=== PATIENT | male | born 1970 | race Caucasian/White ===

== ENCOUNTER 2016-12-14 17:34 | Emergency (ER) | payer MEDICAID ==
[2016-12-14 19:53] LABS: % IMMATURE GRANULYOCYTES 0.2 % (0.0-1.1); ABSOLUTE IMMATURE GRANULOCYTES 0.01 10^3/uL (0.00-0.10); ADD DIFF? NO; ADD MORPH? NO; ADD SCAN? NO; ATYPICAL LYMPHOCYTE FLAG 20 (0-99); FRAGMENT RBC FLAG 0 (0-99); HEMATOCRIT 35.8 % (40.0-51.0); HEMOGLOBIN 12.5 g/dL (13.7-17.5); LEFT SHIFT FLG 0 (0-99); LIPEMIA HEMOLYSIS FLAG 90 (0-99); MEAN CELL HEMOGLOBIN 30.3 pg (27.9-34.1); MEAN CELL HEMOGLOBIN CONCENTR. 34.9 g/dL (32.4-36.7); MEAN CELL VOLUME 86.7 fL (81.5-99.8); MEAN PLATELET VOLUME 8.6 fL (8.7-11.7); PLATELET CLUMPS FLAG 20 (0-99); PLATELET COUNT 305 10^3/uL (150-400); RED BLOOD CELL COUNT 4.13 10^6/uL (4.40-6.38); RED CELL DISTRIBUTION WIDTH 12.7 % (11.5-15.2)
[2016-12-14 20:09] LABS: ANION GAP 10 mEq/L (8-16); CALCIUM 9.5 mg/dL (8.5-10.4); CARBON DIOXIDE 28 mEq/l (22-31); CHLORIDE 99 mEq/L (97-110); CREATININE 0.7 mg/dL (0.7-1.3); ETHANOL SERUM < 10 mg/dL (0-10); GLOMERULAR FILTRATION RATE > 60; GLUCOSE 115 mg/dL (70-100); POTASSIUM 4.1 mEq/L (3.5-5.2); SALICYLATE < 1.0 mg/dL (2.0-20.0); SODIUM 137 mEq/L (134-144)
--- NOTE | 2016-12-14 20:11 | EDPHY ---
H & P Stated Complaint: M1 Hold. Source: Patient - Personal History Current Tetanus Diphtheria and Acellular Pertussis (TDAP): Unsure - Medical/Surgical History Hx Asthma: No Hx Chronic Respiratory Disease: No Hx Diabetes: No Hx Cardiac Disease: No Hx Renal Disease: No Hx Cirrhosis: No Hx Alcoholism: Yes Hx HIV/AIDS: No Hx Splenectomy or Spleen Trauma: No Other PMH: heroin use, alcohol - Social History Smoking Status: Never smoked HPI/ROS: CHIEF COMPLAINT: M1 hold HISTORY OF PRESENT ILLNESS: Patient arrives on a M1 mental health hold due to grave disability, lack of self -care, hallucination and reportedly altered mentation. Patient denies in the hallucinations. He said he was joking when he said he was the president but this was mistaken as someone thinking he was calling himself the president. He denies feeling suicidal or homicidal. He does feel that he has potentially not been taking care of himself very well. He does not recall any medical diagnoses. He cannot providing further history and is a poor historian. No other associated complaints or modifying factors obtainable. PSYCHIATRIC DIAGNOSES: Unknown PRIOR PSYCHIATRIC EVALUATIONS: Unknown M1/DETAINER: By police department today at 4:56 p.m. REVIEW OF SYSTEMS: Ten systems reviewed and are negative unless otherwise noted in the HPI EXAMINATION General Appearance: Alert, no distress, unkempt, cachectic Head: normocephalic, atraumatic Eyes: Pupils equal and round, no conjunctival pallor. EOMs intact mild injection. ENT, Mouth: Mucous membranes moist. Poor dentition. Multiple dental caries, fractures and caps Neck: Normal inspection, supple, non-tender Respiratory: No retractions or distress. Lungs clear in all [place] Cardiovascular: Regular rate and rhythm. No murmur. Pulses intact distally. Gastrointestinal: Abdomen is soft and nontender Back: non-tender, no bony abnormalities Neurological: A&O, nonfocal, normal gait Skin: Warm and dry, no rash Extremities: Nontender, no pedal edema Psychiatric: Mood and affect normal DIFFERENTIAL DIAGNOSES: Including but not limited to failure to thrive, schizophrenia, schizoaffective, bipolar disorder, depression, substance abuse MDM: 8:10 p.m. Mental health hold due to grave disability, lactic care, hallucinations. The patient was reportedly hallucinating and altered earlier today. He is not altered at this time. He does have flight of ideas and difficulty focusing. He denies suicidal ideation or homicidal ideation. He is drinking water to provide a urine sample. Laboratory studies are pending 11:00 p.m. Still waiting for the patient to provide a urine sample 11:30 p.m. Notified by RN that the patient has become more agitated. She is requesting Zyprexa. I have agreed to order Zyprexa for the patient. 12:30 a.m. Notified by RN that the patient is positive for methamphetamine in his urine drug screen. This will require a 12 hour. Before he will be evaluated based on the criteria of the mental health professionals. SUPERVISION: Patient was evaluated in conjunction with the supervising physician. Please see their note for details. (Meet Berkowitz) 0641AM: This patient is signed over to Dr. Tavarez at 7:00 a.m. shift change. Patient needs mental health evaluation this morning. He may be able to be discharged if he has cleared his methamphetamine. (Raffi Ferreira) Constitutional: Initial Vital Signs Temperature (C) 36.4 C 12/14/16 17:51 Heart Rate 84 12/14/16 17:51 Respiratory Rate 16 12/14/16 17:51 Blood Pressure 141/105 H 12/14/16 17:51 O2 Sat (%) 98 12/14/16 17:51 O2 Delivery Mode Room Air Allergies/Adverse Reactions: DAIRY Allergy (Uncoded 07/06/14 00:14) Home Medications: Medication Instructions Recorded NK [No Known Home Meds] 07/06/14 Medical Decision Making ED Course/Re-evaluation: This patient was signed over to me at shift change. He was seen by mental health. The plan is for him to go to the [facility] for treatment of his substance abuse. He denies suicidal or homicidal ideation. (Aimee Melchor) Other Provider: I assumed care of the patient at 0700 AM pending psychiatric disposition. I evaluated the patient personally. He is sleeping in bed in arousable. The patient is not agitated however is still somewhat confused. The patient tells me he is homeless. He believes he has lived in [place] since 1998. He denies that he is used any drugs or alcohol. The patient states that he has no prior history of psychiatric disease. At this point time, the patient will require further observation and a mental health evaluation. (Tristan Tavarez) - Data Points Laboratory Results: Laboratory Results 12/14/16 19:40 12/14/16 19:40 Medications Given: Discontinued Medications Olanzapine (Zyprexa Zydis) 10 mg PO EDNOW ONE Stop: 12/14/16 23:40 Last Admin: 12/14/16 23:57 Dose: 10 mg Departure - Departure Clinical Impression: Methamphetamine abuse Condition: Fair Instructions: Methamphetamine Abuse (ED) Additional Instructions: Go directly to the arc. Follow-up with mental health as suggested. Referrals: Neris Wolfe MD [Medical Doctor] - As per Instructions
[2016-12-14 20:23] LABS: LITHIUM < 0.2 mEq/L (0.6-1.2)
[2016-12-14] MEDS ORDERED: OLANZapine DISINTEGR 10 MG TAB PO ONE (23:39)
[2016-12-15 16:41] VITALS: BP 110/74; PULSE 91; RESP 18; TEMP 97.7; O2SAT 97
== END 2016-12-15 16:55 | disposition home or self-care (01) ==
LOC: EDUNIT#
DX: F15.10 Other stimulant abuse, uncomplicated (principal)
CPT/HCPCS: 80305; G0480

== ENCOUNTER 2017-10-16 10:09 | Emergency (ER) | payer SELFPAY ==
[2017-10-16] MEDS ORDERED: OLANZapine 10 MG/2 ML VIAL IM ONE (10:37)
--- NOTE | 2017-10-16 10:57 | EDPHY ---
H & P Stated Complaint: Hallucinations, M1 psychiatric hold, running in traffic Source: Patient Exam Limitations: No limitations - Personal History Current Tetanus/Diphtheria Vaccine: Unsure Current Tetanus Diphtheria and Acellular Pertussis (TDAP): Unsure - Medical/Surgical History Hx Asthma: No Hx Chronic Respiratory Disease: No Hx Diabetes: No Hx Cardiac Disease: No Hx Renal Disease: No Hx Cirrhosis: No Hx Alcoholism: Yes Hx HIV/AIDS: No Hx Splenectomy or Spleen Trauma: No Other PMH: ETOH, polysubstance abuse (meth,heroin), THC, homeless - Social History Smoking Status: Never smoked Time Seen by Provider: 10/16/17 10:17 HPI/ROS: CHIEF COMPLAINT: Hallucinations, running in traffic HISTORY OF PRESENT ILLNESS: The patient is brought in M1 psychiatric hold after he was found running in traffic hallucinating. The patient himself is unable to provide any history as he is agitated and confused. In reviewing his past medical records he has been seen for altered mental status secondary to methamphetamine abuse. The patient denies any complaints of acute pain. He denies history of trauma. The patient is not forthcoming about his medications or substance abuse history. REVIEW OF SYSTEMS: A comprehensive 10 point review of systems is otherwise negative aside from elements mentioned in the history of present illness. (Tristan Tavarez) - Physical Exam Exam: General Appearance: Disheveled male, confused, appears intoxicated Eyes: Pupils equal and round no pallor or injection ENT, Mouth: Mucous membranes moist Respiratory: There are no retractions, lungs are clear to auscultation Cardiovascular: Regular rate and rhythm Gastrointestinal: Abdomen is soft and nontender, no masses, bowel sounds normal Neurological: Moves all 4 extremities with 5/5 strength Skin: Warm and dry, no rashes Musculoskeletal: Neck is supple nontender Extremities: symmetrical, full range of motion Psychiatric: Agitated, not stating suicidal or homicidal intent (Tristan Tavarez) Constitutional: Initial Vital Signs Heart Rate 79 10/16/17 10:09 Respiratory Rate 20 10/16/17 10:09 Blood Pressure 115/83 H 10/16/17 10:09 O2 Sat (%) 95 10/16/17 10:09 O2 Delivery Mode Room Air Allergies/Adverse Reactions: DAIRY Allergy (Uncoded 07/06/14 00:14) Home Medications: Medication Instructions Recorded NK [No Known Home Meds] 07/06/14 Medical Decision Making ED Course/Re-evaluation: 1500: The patient is signed out to me at change of shift by Dr. Tavarez. Patient is awaiting evaluation. Patient is stable. Patient was stable throughout stay. Patient was signed out to Dr. Ferreira at change of shift. (Tanya Armstrong) The patient presents the ED with acute agitation altered mental status. The patient did require IM Zyprexa. The patient did have screening laboratories obtained. The patient was able to be sedated with Zyprexa. 3:00 p.m.: The patient is still pending urinalysis. I have ordered a straight cath the patient refuses to urinate. Patient will be turned over to Dr. Armstrong at shift change. The patient was evaluated by Mental Health and his hold has been dropped. The patient now contracts for safety and is comfortable following up as an outpatient. (Tristan Tavarez) Differential Diagnosis: Differential diagnosis considered includes psychosis, schizophrenia, substance abuse, amphetamine intoxication (Tristan Tavarez) - Data Points Laboratory Results: Laboratory Results 10/16/17 11:48 10/16/17 11:48 Medications Given: Discontinued Medications Olanzapine (Zyprexa Im Injection) 10 mg IM EDNOW ONE Stop: 10/16/17 10:38 Last Admin: 10/16/17 10:44 Dose: 10 mg Departure - Departure Disposition: Home, Routine, Self-Care Clinical Impression: Polysubstance abuse, Methamphetamine abuse Condition: Good Referrals: NONE *PRIMARY CARE P,. [Primary Care Provider] - As per Instructions
[2017-10-16 11:55] LABS: PLATELET COUNT 361 10^3/uL (150-400)
[2017-10-16 23:06] VITALS: BP 94/57
--- NOTE | 2017-10-18 12:53 | ASMTTCLDSP ---
TLC Discharge Disposition Disposition: Answers: Discharge If Answers: Yes DISCHARGED: Patient/family given suicide hotline info & SAMHSA brochure? Disposition Notes: Notes: In consultation with [facility] ED physician, Raffi Camacho MD, and psychiatrist, Daniel Morillo MD, both concurred that pt does not appear to meet 27-65 criteria requiring psychiatric hospitalization as pt does not appear to be an imminent risk of harm to self and others due to a mental illness condition. Dr. Morillo provided telephone order read back vacating m1 hold at 07:00 hrs. Discharge Concerns/Recommendations: Notes: The pt stated commitment or ability to keep self safe, denied thoughts of self harm or harm to others. The pt was given local hotline information and samhsa brochure after an attempt, as well as additional mental health and addiction recovery resources. The pt was encouraged to follow up with said resources. Was patient given the Answers: Not applicable Inpatient Behavioral Health Prohibited Belongings List while in the ED? Psychiatrist vacating M1 Daniel Morillo MD Hold: Date and time M1 hold 10/17/2017 07:00 AM vacated (time format is hh:mm): Type of Hold: Answers: M1/72-hour Hold Hold initiated by: Answers: Police Date Signed: 10/17/2017 10:23 AM Electronically Signed By:Gaby Henley
--- NOTE | 2017-10-18 12:53 | ASMTTLCEVL ---
TLC Evaluation - Basic Information Evaluation Start Date and 10/17/2017 06:00 AM Time Hospital Status Answers: M1 Hold 72-hr M1 Hold Start Date 10/16/2017 09:14 AM and Time Patient statement Notes: "It was in the morning. I was arrested at [employer]. I wasnt arrested but needed water and everywhere I went, people were following me. People told me to leave; then I went to [facility] and the police came and told me to leave. This whole thing stems from me being in pain." Narrative Notes: The pt is a 46 year old single, male who was brought to the [facility] ed on a m1 hold. Per m1 hold, a retail security had reported a subject was blocking cars in the parking lot and scaring customers who he approached acting in a manic state. When police arrived they asked him to leave, subject rand across [address] without regard to traffic and his safety. When contacted by police he had expressed thoughts of thinking the police commanding officer was from the mob to kill him. He also thought someone was following him. The pt was placed on a m1 hold and brought to the [facility] ed due to hallucinations and concerns for his safety. During the re-assessment, the pt was rolled over on his side, turned away from this timers inspector. He did not make eye contact and he was mumbling his responses. He reported feeling like he had "caught a cold in the middle of the night." The pt requested a cup of coffee multiple times. He stated, "i don't remember" when asked about the events leading up to him coming to the er. The pt denied SI, HI, A/VH, and anxiety; rating himself a 0/10. He stated that he felt depressed and refused to rate himself on a scale from 0-10. When initially asked about A/VH the pt replied, "well, I have my eyes closed." The pt later stated, " i don't mean to be rude but the questions there are a lot of them." Diagnosis History Notes: The pt stated, "as much as I need help, they wont help me. Prior suicide attempts Notes: The pt denied any prior suicide attempts. Prior hospitalizations Notes: The pt was seen in the [facility] ed on 12/14-12/15/2016. There is no report of a mh evaluation due to d/c and medically cleared with positive meth. Per ed report, the pt has a hx of alcohol, polysubstance abuse, (meth and heroin) and THC. Treatment Responses Notes: none reported History of violence Notes: The pt denied any homicidal ideation or previous hx of violence. Therapist: none reported Psychiatrist: none reported Medications (name, dosage, route, freq uency) Notes: none reported; the pt stated he is not taking medications but stated, I would love to take medications for pain. Allergies/Reaction Notes: none reported Sleep Notes: The pt answered, obviously, I dont eat or sleep at all and thats just the way it is but thats not healthy. Appetite Notes: none reported Medical/Surgical history Notes: The pt stated, I pretty much look like Im dying of aids but Im in top shape. The pt stated he does have chronic teeth problems. Substance use history (frequency, intensity, his tory, duration) Notes: The pt stated he does methamphetamine and has been doing it since he was a teenager. The pt stated I do a little bit. pt stated I resort to little bits of drugs here and there for my tooth. Family composition Notes: The pt stated his parents are . The pt stated, I have no family at all." Family psychiatric/substance abuse history Notes: The pt denied any family psychiatric hx. pt denied any family substance abuse hx. Developmental history Notes: The pt did not report any developmental issues or learning disabilities. The pt denied ADD or ADHD. The pt denied any TBIs concussions or LOC. The pt did not report any physical abuse, emotional abuse, or sexual abuse. Abuse concerns Answers: None Marital status/children Notes: unknown Living situation Notes: The patient is transient and living in [place], [place]. Sexual history/orientation Notes: The pt did not report their sexual hx, orientation, nor whether they are currently sexually active. Peer support/family strengths Notes: The pt stated, "I have friends." Education level/history Notes: The pt reported completing the 10th grade. Work history Notes: none reported Notes: unknown Legal Notes: The pt was brought to [facility] Emergency Department by law enforcement and placed on a M1 hold. He reports having multiple contacts with police. Holiness/Spiritual Notes: The pt reported none that would interfere with treatment. Leisure Notes: none reported Collateral Notes: none TLC Evaluation - Mental Status Exam Appearance: Answers: Unclean Unkempt Disheveled Eye Contact: Answers: Avoiding Mood: Answers: Euthymic Affect: Answers: Apathetic Congruent w/ Mood Guarded Indifferent Behavior: Answers: Cooperative Fatigued Guarded Passive Withdrawn Speech: Answers: Relevant Logical Clear Coherent Mumbling Perseverating Slowed Soft Thought Process: Answers: Organized Oriented Distracted Intact Insight: Answers: Fair Judgement: Answers: Poor Depression Answers: Diminished Interest Signs/Symptoms: Diminished Pleasure Withdrawn Hallucinations: Answers: None Current Stage of Change Answers: Contemplation Pt reported to have Answers: No suicidal/self-injuring ideation/behavior? Pt reported to be making Answers: No suicidal/self-injuring threats? Pt reported to be making Answers: No aggression/assault threats? Pt exhibits inability to Answers: No care for self/grave disability? Ideation/behavior is Answers: No chronic? Pt has access to means to Answers: No execute the plan? Ideation has Answers: No delusional/hallucinatory content? History of Answers: No suicidal/self-injuring ideation, behavior, or threats? History of Answers: No aggressive/assaultive ideation, behavior, or threats? History of serious Answers: No physical harm to self/others while in treatment setting? [facility] Evaluation - Suicide/Homicide Risk Suicide Risk Factors: Answers: < 20 or > 40 Years of Age Anhedonia Inadequate Social Support Lack/Loss of Employment Legal Difficulties Single Other Notes: drug abuse Homicide/violence risk Answers: Heavy Drug Use factors: Paranoid Ideation Current Suicidal Answers: No Ideation? Current Suicidal Ideation Answers: No in the Past 48 Hours? Current Suicidal Ideation Answers: No in the Past Month? Current Suicidal Answers: No Ideation, Worst Ever? Suicide Internal Answers: Frustration Tolerance Protective Factors: Suicide External Answers: Social Support Protective Factors: TLC Evaluation - Wrap-up BDI Total Score: n/a BDI Question #2 Score: n/a BDI Question #9 Score: n/a BSS Total Score: n/a AXIS I Diagnosis (include DSM-V and ICD-10 codes), must also be entered in [facility], which is the source of truth. 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
--- NOTE | 2017-10-18 14:59 | ASDISCHSUM ---
[facility] Case Management CM Discharge Summary Patient Name: GIUSEPPE ROA Rpt#: [id number] MR#: [id number] Attending: Raffi Ferreira MD Adm Date: 10/16/17 Discharge Information Plan Status: Homeless/Long-Term Medically Cleared to Leave: Discharge Date: 10/17/2017 07:43 AM CM D/C Disposition: Streets (Homeless) ADT D/C Disposition: Home, Routine, Self-Care Projected Discharge Date: 10/17/2017 07: 43 AM Transportation at D/C: None or Unknown Discharge Delay Reason: Follow-Up Date: 10/17/2017 07:43 AM Discharge Slot: Final Diagnosis: Placement Information Patient Contact Information Contact Name: RAJWINDER Relationship: Address: Home Phone: Work Phone: City: Alternate Phone: State/Zip Code: Email: Financial Information Financial Class: Self-Pay Primary Plan Desc: SELF PAY Primary Plan Number: Secondary Plan Desc: Secondary Plan Number: Assessment Information Intervention Information
== END 2017-10-17 07:23 | disposition home or self-care (01) ==
LOC: EDUNIT#
DX: F15.10 Other stimulant abuse, uncomplicated (principal); F19.10 Other psychoactive substance abuse, uncomplicated
CPT/HCPCS: 80305; G0480

== ENCOUNTER 2017-12-03 16:35 | Emergency (ER) | payer MEDICAID ==
[2017-12-03] MEDS ORDERED: OLANZapine DISINTEGR 10 MG TAB PO ONE (17:03)
--- NOTE | 2017-12-03 17:05 | EDPHY ---
H & P Smoking Status: Never smoked Time Seen by Provider: 12/03/17 16:57 HPI/ROS: Chief complaint. Agitation HPI. 47-year-old male here by [place] [employer] after report of the patient behaving bizarrely in public and trying to run into traffic. He was combative by [place] [employer] and had to be tackled. He was seen October 16 for similar situation of running in traffic and his tox screen was positive for methamphetamine. He received IM Zyprexa and had a mental health evaluation. Today the patient admits to methamphetamine as well as other substances. He has no physical complaints. He is agitated and tells me he is a "rapid thinker". He denies suicide or homicide ideation ROS Constitutional. no fever/chills, no weakness Eyes. no problems with vision ENT. no sore throat, no nasal drainage Cardiovascular. no chest pain Respiratory. no shortness of breath, no cough Abdominal. no abdominal pain, no nausea/vomiting, no diarrhea . no problems urinating MS. no calf pain/swelling, no neck/back pain, no joint pain Skin. no rash Lymph. no swollen glands Neuro. Agitation (Kenton Yang S) Past Medical/Surgical History: Polysubstance abuse (Kenton Yang S) Social History: Single, nonsmoker, no alcohol (Kenton Yang S) Physical Exam: General Appearance: Alert well-developed male agitated tachycardic. Eyes: Pupils equal and round no pallor or injection. ENT, Mouth: Mucous membranes are moist. Respiratory: There are no retractions, lungs are clear to auscultation. Cardiovascular: Regular rate and rhythm. Gastrointestinal: Abdomen is soft and nontender, no masses, bowel sounds normal. Neurological: Awake and alert, sensory and motor exams grossly normal. Skin: Warm and dry, no rashes. Musculoskeletal: Neck is supple nontender. Extremities symmetrical, full range of motion. Psychiatric: Oriented x3. Agitated (TreyKenton S) Constitutional: Initial Vital Signs Temperature (C) 37.0 C 12/03/17 16:49 Heart Rate 128 H 12/03/17 16:49 Respiratory Rate 26 H 12/03/17 16:49 Blood Pressure 158/89 H 12/03/17 16:49 O2 Sat (%) 97 12/03/17 16:49 O2 Delivery Mode Room Air Allergies/Adverse Reactions: DAIRY Allergy (Uncoded 07/06/14 00:14) Home Medications: Medication Instructions Recorded Unobtainable 12/03/17 Medical Decision Making Procedures: Zyprexa and Ativan (Kenton Yang) ED Course/Re-evaluation: Re-evaluation at 6:15 p.m. Patient is better but still agitated. He is given another oral dose of Ativan Re-evaluation 8:30 p.m. Patient is sleepy. He has not been able to give us a urine sample. He will have a straight cath a 4 year obtain a urine for urine tox screen Urine tox screen positive for meth and cocaine. This will delay his mental health evaluation (Kenton Yang) 9:45 p.m.: Patient is signed out to me at change of shift by Dr. Yang. The patient is awaiting evaluation by Psychiatric Services. 11:00 p.m.: The patient is signed out to Dr. Caldwell at change of shift awaiting evaluation (Tanya Armstrong) I took over care of this patient at 7:00 a.m.. This patient is on an M1 hold. The patient was brought in by police for acting bizarrely in public, running into traffic and being combative. He is positive for methamphetamine. He is awaiting evaluation by Behavioral Health. 9:15 a.m., patient seen and evaluated by [facility]. Patient is not suicidal or homicidal. Patient has been cleared for discharge by the on-call psychiatrist Dr. Scott. His M1 hold has been discontinued. Follow-up plan in place through [facility]. Return to emergency department precautions discussed with the patient. He understands his follow-up. He was discharged in good condition. (Jon Muniz) Differential Diagnosis: Polysubstance abuse. It is unclear currently where the patient is psychotic or not secondary to his med ingestions. (Kenton Yang) Other Provider: 2300 care assumed by me from Dr. Armstrong pending mental health evaluation. ( Fermin Caldwell) Care Turn Over: Dr. Armstrong at 9:15 p.m. (Kenton Yang) - Data Points Laboratory Results: Laboratory Results 12/03/17 18:46 12/03/17 18:46 Medications Given: Discontinued Medications Lorazepam (Ativan) 1 mg PO EDNOW ONE Stop: 12/03/17 17:34 Last Admin: 12/03/17 17:39 Dose: 1 mg Lorazepam (Ativan) 1 mg PO EDNOW ONE Stop: 12/03/17 18:18 Last Admin: 12/03/17 18:23 Dose: 1 mg Olanzapine (Zyprexa Zydis) 10 mg PO EDNOW ONE Stop: 12/03/17 17:04 Last Admin: 12/03/17 17:39 Dose: 10 mg Departure - Departure Disposition: Home, Routine, Self-Care Clinical Impression: Polysubstance abuse, Altered mental status Condition: Good Instructions: Polysubstance Abuse (ED) Additional Instructions: Read and follow provided instructions. Follow-up with your primary care physician and [facility] in 1-2 days for re-evaluation. Do not drink alcohol or do drugs. Return to the emergency department for worsening symptoms or other serious concerns. Referrals: [facility],. [Clinic] - As per Instructions [facility] - As per Instructions
[2017-12-03] MEDS ORDERED: LORazepam 1 MG TAB PO ONE ×2 (17:33→18:17)
[2017-12-03] MEDS ORDERED: OLANZapine DISINTEGR 10 MG TAB ONE (17:34)
[2017-12-03] MEDS ORDERED: LORazepam 1 MG TAB ONE (17:34)
[2017-12-03 18:51] LABS: PLATELET COUNT 336 10^3/uL (150-400)
[2017-12-04 08:43] VITALS: BP 128/76
--- NOTE | 2017-12-04 09:22 | ASMTTLCEVL ---
TLC Evaluation - Basic Information Evaluation Start Date and 12/04/2017 08:45 AM Time Hospital Status Answers: M1 Hold 72-hr M1 Hold Start Date 12/04/2017 08:45 AM and Time Patient statement Notes: "I dont recall being physically combative. I used a little bit of meth yesterday. It may have had a little cocaine in it. Im not feeling suicidal or wanting to hurt anyone else. Im feeling better now, just tired. Narrative Notes: Pt is a 47 year old single, transient, male, with history of amphetamine, opiate, and cannabis use disorders, who was brought to [facility] by [employer] on a m1 hold which noted: The respondent was shirtless, yelling nonsensical statements and sat down in the middle of [address]. He was speaking fast and became physically combative. Diagnosis History Notes: Pt has a long history of methamphetamine, marijuana and alcohol use disorder. Prior suicide attempts Notes: The pt denied any prior suicide attempts. Prior hospitalizations Notes: The pt was seen in the [facility] ED on 12/14-12/15/2016 and on 10/17/17. In both instances, pt was discharged from the ED. Treatment Responses Notes: Pt has a pattern of refusing mental health/substance abuse help and continues using illicit substances. History of violence Notes: The pt denied any homicidal ideation or previous hx of violence. Therapist: None Psychiatrist: None Medications (name, dosage, route, freq uency) Notes: None reported; the pt stated he is not taking medications but stated, I would love to take medications for pain. Allergies/Reaction Notes: Dairy. Sleep Notes: The pt answered, Obviously, I dont eat or sleep at all and thats just the way it is but thats not healthy. Appetite Notes: Decreased, appears thin. Medical/Surgical history Notes: The pt stated, I pretty much look like Im dying of AIDS but Im in top shape. The pt stated he does have chronic teeth problems. Substance use history (frequency, intensity, his tory, duration) Notes: The pt stated he does methamphetamine and has been doing it since he was a teenager. The pt stated I do a little bit. pt stated I resort to little bits of drugs here and there for my tooth. BAL was zero. UDS results positive for Amphetamine, Benzodiazepines, Cocaine, and Marijuana. Family composition Notes: The pt stated his parents are . The pt stated, I have no family at all." Need for family Answers: No participation in patient's care Family psychiatric/substance abuse history Notes: The pt denied any family psychiatric history. Pt denied any family substance abuse history. Developmental history Notes: The pt did not report any developmental issues or learning disabilities. The pt denied ADD or ADHD. The pt denied any TBIs concussions or LOC. The pt did not report any physical abuse, emotional abuse, or sexual abuse. Abuse concerns Answers: None Marital status/children Notes: Single, never , no dependents. Living situation Notes: Homeless. Sexual history/orientation Notes: Not active. Heterosexual. Peer support/family strengths Notes: The pt stated, "I have friends." Education level/history Notes: The pt reported completing the 10th grade. Work history Notes: Unemployed. Notes: None. Legal Notes: The pt was brought to [facility] by law enforcement and placed on a M1 hold. He reports having multiple contacts with police. Adventism/Spiritual Notes: The pt reported none that would interfere with treatment. Leisure Notes: None reported. Collateral Notes: Per prior [facility] records. TLC Evaluation - Mental Status Exam Appearance: Answers: Unclean Unkempt Disheveled Bizarre Eye Contact: Answers: Avoiding Mood: Answers: Euthymic Affect: Answers: Calm Indifferent Behavior: Answers: Cooperative Guarded Resistive to Care Speech: Answers: Relevant Logical Clear Coherent Thought Process: Answers: Organized Oriented Alert Goal Oriented Intact Insight: Answers: Poor Judgement: Answers: Fair Manic Signs/Symptoms Answers: Impulsivity Irritability Depression Answers: Flat Affect Signs/Symptoms: Hallucinations: Answers: None Current Stage of Change Answers: Precontemplation Pt reported to have Answers: No suicidal/self-injuring ideation/behavior? Pt reported to be making Answers: No suicidal/self-injuring threats? Pt reported to have Answers: No aggression/assault ideation/behavior? Pt reported to be making Answers: No aggression/assault threats? Pt exhibits inability to Answers: No care for self/grave disability? Ideation/behavior is Answers: No chronic? Patient has a specific Answers: No plan? Pt has access to means to Answers: No execute the plan? Ideation involves Answers: No serious/lethal intent? Ideation has Answers: No delusional/hallucinatory content? History of Answers: No suicidal/self-injuring ideation, behavior, or threats? History of Answers: No aggressive/assaultive ideation, behavior, or threats? History of serious Answers: No physical harm to self/others while in treatment setting? TLC Evaluation - Suicide/Homicide Risk Suicide Risk Factors: Answers: < 20 or > 40 Years of Age Alcohol/Heavy Drug Use Impulsivity Inadequate Social Support Intoxication Lack of Adventism Support Lack of Social Support Lack/Loss of Employment Single Unstable Living Situation Homicide/violence risk Answers: None factors: Current Suicidal Answers: No Ideation? Current Suicidal Ideation Answers: No in the Past 48 Hours? Current Suicidal Ideation Answers: No in the Past Month? Current Suicidal Answers: No Ideation, Worst Ever? Suicide Internal Answers: Absence of Psychosis Protective Factors: Suicide External Answers: None Protective Factors: Ranking of patient's Answers: Low suicidal risk: Ranking of patient's Answers: Low homicidal risk: TLC Evaluation - Wrap-up BDI Total Score: 0 BDI Question #2 Score: 0 BDI Question #9 Score: 0 BSS Total Score: 0 AXIS I Diagnosis (include DSM-V and ICD-10 codes), must also be entered in [employer], which is the source of truth. Notes: AMPHETAMINE-TYPE SUBSTANCE USE DISORDER, SEVERE 304.40 (F15.20) COCAINE USE DISORDER, MODERATE 305.60 (F14.20) SEDATIVE, HYPNOTIC, OR ANXIOLYTIC-RELATED DISORDER, MODERATE 304.10 (F13.20) CANNABIS USE DISORDER, SEVERE 304.30 (F12.20) In consultation with [facility] physician, Vinny Muniz MD, and on-call psychiatrist, Daniel Morillo MD, both concurred that pt does not appear to meet 27-65 criteria requiring psychiatric hospitalization as pt does not appear to be an imminent risk of harm to self/others/gravely disabled due to a mental illness condition. Dr. Morillo provided telephone order read back vacating M1 hold at 0900 hrs. Evaluation End Date and 12/04/2017 09:20 AM Time (HH:ADRIÁN): Date Signed: 12/04/2017 09:21 AM Electronically Signed By:Santos Abdalla
--- NOTE | 2017-12-04 09:23 | ASMTTCLDSP ---
TLC Discharge Disposition Disposition: Answers: Discharge If Answers: Yes DISCHARGED: Patient/family given suicide hotline info & SAMHSA brochure? Disposition Notes: Notes: Pt stated commitment or ability to keep self safe, denied thoughts of self harm or harm to others. Pt was given local hotline information and SAMHSA brochure After an Attempt and encouraged to follow up with [facility]. Discharge Concerns/Recommendations: Notes: In consultation with [facility] ED physician, Vinny Muniz MD, and on-call psychiatrist, Daniel Morillo MD, both concurred that pt does not appear to meet 27-65 criteria requiring psychiatric hospitalization as pt does not appear to be an imminent risk of harm to self/others/gravely disabled due to a mental illness condition. Dr. Morillo provided telephone order read back vacating M1 hold at 0900 hrs. Was patient given the Answers: Not applicable Inpatient Behavioral Health Prohibited Belongings List while in the ED? Psychiatrist vacating M1 Daniel Morillo MD Hold: Date and time M1 hold 12/04/2017 09:00 AM vacated (time format is hh:mm): Type of Hold: Answers: M1/72-hour Hold Hold initiated by: Answers: Police Date Signed: 12/04/2017 09:22 AM Electronically Signed By:Santos Abdalla
== END 2017-12-04 09:30 | disposition home or self-care (01) ==
DX: R41.82 Altered mental status, unspecified (principal); F19.10 Other psychoactive substance abuse, uncomplicated
CPT/HCPCS: 80305; G0480

== ENCOUNTER 2018-04-03 10:56 | Emergency (ER) | payer MEDICAID ==
--- NOTE | 2018-04-03 11:02 | EDPHY ---
Addendum entered and electronically signed by Tristan Tavarez MD 04/03/18 19: 51: Re-evaluated the patient personally at 8:00 p.m.. He is much more oriented. He is still experiencing some paranoid delusions. The patient does report that he is homeless. He is not been staying at the homeless alf. The patient is uncertain where his camp is at. He is uncertain what he would do if he were discharged from the department. We are attempting to obtain collateral information for [facility]. Addendum entered and electronically signed by Tristan Tavarez MD 04/03/18 14: 51: Please note the patient was not evaluated by Psychiatry and felt to be malingering. The patient continues to be sedated after a presentation c/w methamphetamine induced psychosis. Original Note: H & P Smoking Status: Never smoked Time Seen by Provider: 04/03/18 10:59 HPI/ROS: CHIEF COMPLAINT: Mental health hold HISTORY OF PRESENT ILLNESS: Police were called to the coffee shop the patient was apparently yelling and screaming about how "this is my coffee shop"and how he wanted to hurt himself. He is placed on a mental health hold for grave disability and suicidal ideation. REVIEW OF SYSTEMS: Patient is disorganized and only intermittently cooperative, which limits further history and review of systems. PAST MEDICAL HISTORY: Prior visits December 03 and October 16 of this year for psychosis due to methamphetamine. Social history: Admits to methamphetamine General Appearance: Alert and ambulatory, intermittently cooperative Eyes: No scleral icterus. Pupils equal reactive extraocular motion intact ENT, Mouth: Poor dentition but no trismus and no intraoral swelling. Normal pharynx. Respiratory: Normal respiratory effort, breath sounds equal, lungs are clear to auscultation. Cardiovascular: Regular rate and rhythm. Gastrointestinal: Abdomen is soft and non tender. Neurological: Alert, face symmetric, normal motor and sensory in extremities. Ambulatory but not ataxic. Skin: Scattered abrasions to both hands on the dorsum but no cellulitis. Musculoskeletal: No peripheral edema. Neck supple, no extremity deformity or tenderness, no meningeal signs. Psychiatric: Patient is intermittently agitated, he is pacing in the room, he has sometimes random answers to questions. He is distracted by external stimuli that are not apparent to anyone else in the room. Emergency Department course/MDM: Placed on a hold by police, on arrival for grave disability and also for having made suicidal statements to them. Labs and urine tox, serial observation, mental health evaluation when cleared. The toxicology positive for amphetamine. The patient had a medical screening evaluation performed. There does not appear to be an acute emergent medical or surgical condition which would preclude psychiatric evaluation at this time. Mental health evaluation is requested at 1329. (Almas Desouza) Constitutional: Initial Vital Signs Temperature (C) 37 C 04/03/18 11:54 Heart Rate 78 04/03/18 11:54 Respiratory Rate 18 04/03/18 11:54 Blood Pressure 135/78 H 04/03/18 11:54 O2 Sat (%) 98 04/03/18 11:54 O2 Delivery Mode Room Air Allergies/Adverse Reactions: DAIRY Allergy (Uncoded 07/06/14 00:14) Home Medications: Medication Instructions Recorded Unobtainable 12/03/17 Medical Decision Making Differential Diagnosis: Differential considered including but not limited to primary psychotic disorder , metabolic, methamphetamine, alcohol (Almas Desouza) Other Provider: I assumed care of the patient at 1:45pm The patient was evaluated by Mental Health who feels the patient is currently malingering. The patient's M1 psychiatric hold was dropped by the on-call psychiatrist. The patient has been discharged from the emergency department. (Tristan Tavarez) [address] Guidry pending case management evaluation. [address] Moreno pending case management evaluation. I have had no issues during my care this patient overnight. (Fermin Caldwell) 10:00 a.m. Case management and mental health were both involved with the patient and were able to successfully get him resources. He denies suicidal or homicidal ideation. (Dwayne Moreno) - Data Points Laboratory Results: Laboratory Results 04/03/18 11:45 04/03/18 11:45 Medications Given: Discontinued Medications Olanzapine (Olanzapine) 10 mg PO ONCE ONE Stop: 04/03/18 11:31 Last Admin: 04/03/18 12:17 Dose: 10 mg Departure - Departure Disposition: Home, Routine, Self-Care Clinical Impression: Acute psychosis, Methamphetamine abuse Condition: Good Instructions: Methamphetamine Abuse (ED) Referrals: [facility],. [Clinic] - As per Instructions [facility],. [Clinic] - As per Instructions
[2018-04-03] MEDS ORDERED: OLANZapine 5 MG TAB ONE (11:30)
[2018-04-03] MEDS ORDERED: OLANZapine 5 MG TAB PO ONE (11:30)
[2018-04-03 12:01] LABS: PLATELET COUNT 520 10^3/uL (150-400)
[2018-04-04] MEDS ORDERED: IBUPROFEN 600 MG TAB PO ONE (08:22)
[2018-04-04 08:26] VITALS: BP 140/78
--- NOTE | 2018-04-04 08:45 | ASMTTLCEVL ---
TLC Evaluation - Basic Information Evaluation Start Date and 04/04/2018 08:00 AM Time Hospital Status Answers: M1 Hold 72-hr M1 Hold Start Date 04/03/2018 10:30 AM and Time Patient statement Notes: I used a bit of meth yesterday. Im not feeling suicidal or wanting to hurt anyone else. Im feeling better now, other than feeling some cold symptoms. Narrative Notes: Pt is a 47 yo, single, transient and homeless, male, with history of amphetamine, opiate, and cannabis use disorders, who was brought to [facility] ED by [employer] on an M1 hold which noted: Respondent appearance and dirty condition indicate he is not caring for self. Respondent made numerous statement about needing help (including medical). Was speaking to people that did not exist and about being persecuted by same. Respondent made numerous threates of violence towards others including responding officer (to shoot in back of head). Per ED provider report, police were called to a coffee shop where the pt was apparently yelling and screaming about how this is my coffee shop and how he wanted to hurt himself. [facility] records noted prior ED visits on 10/16/2017 and 12/04/17 for psychosis due to methamphetamine use. BAL was zero. UDS results were positive for amphetamine at 1200 on 12/01/17. Diagnosis History Notes: Pt has a long history of methamphetamine, marijuana and alcohol use disorder. Prior suicide attempts Notes: The pt denied any prior suicide attempts. Prior hospitalizations Notes: The pt was seen in the [facility] ED on 12/14-12/15/2016, 10/17/17, and on 12/04/17. In each instance, pt was discharged from the ED. Treatment Responses Notes: Pt has a pattern of refusing mental health/substance abuse help and continues using illicit substances. History of violence Notes: The pt denied any homicidal ideation or previous history of violence. Therapist: None. Psychiatrist: None. Medications (name, dosage, route, freq uency) Notes: None reported; the pt stated he is not taking medications but stated, I would love to take medications for pain. Allergies/Reaction Notes: Dairy. Sleep Notes: The pt answered, Obviously, I dont eat or sleep at all and thats just the way it is but thats not healthy. Appetite Notes: Decreased, appears thin. Medical/Surgical history Notes: The pt stated, I pretty much look like Im dying of AIDS but Im in top shape. The pt stated he does have chronic teeth problems. Substance use history (frequency, intensity, his tory, duration) Notes: The pt stated he does methamphetamine and has been doing it since he was a teenager. The pt stated I do a little bit. pt stated I resort to little bits of drugs here and there for my tooth. BAL was zero. BAL was zero. UDS results were positive for amphetamine at 1200 on 12/01/17. Family composition Notes: The pt stated his parents are . The pt stated, I have no family at all." Need for family Answers: No participation in patient's care Family psychiatric/substance abuse history Notes: The pt denied any family psychiatric history. Pt denied any family substance abuse history. Developmental history Notes: The pt did not report any developmental issues or learning disabilities. The pt denied ADD or ADHD. The pt denied any TBIs concussions or LOC. The pt did not report any physical abuse, emotional abuse, or sexual abuse. Abuse concerns Answers: None Marital status/children Notes: Single, never , no dependents. Living situation Notes: Homeless. Pt stated he has not been staying at the custodial and does not recall where his camp is located. Sexual history/orientation Notes: Not active. Heterosexual. Peer support/family strengths Notes: The pt stated, "I have friends." Education level/history Notes: The pt reported completing the 10th grade. Work history Notes: Unemployed. Notes: None. Legal Notes: The pt was brought to [facility] Emergency Department by law enforcement and placed on a M1 hold. He reports having multiple contacts with police. Presybeterian/Spiritual Notes: The pt reported none that would interfere with treatment. Leisure Notes: None reported. Collateral Notes: Prior [facility] records. Patient's strengths Answers: Artistic/Creative/Musical (Please select at least TWO strengths): Willingness TLC Evaluation - Mental Status Exam Appearance: Answers: Unclean Unkempt Disheveled Eye Contact: Answers: Avoiding Mood: Answers: Sad Affect: Answers: Calm Incongruent w/ Mood Indifferent Sad Subdued Behavior: Answers: Cooperative Fatigued Passive Resistive to Care Sleeping Speech: Answers: Relevant Logical Clear Coherent Thought Process: Answers: Organized Oriented Alert Goal Oriented Intact Insight: Answers: Poor Judgement: Answers: Fair Manic Signs/Symptoms Answers: Impulsivity Depression Answers: Diminished Pleasure Signs/Symptoms: Psychomotor Retardation Sad Mood Hallucinations: Answers: None Current Stage of Change Answers: Precontemplation Pt reported to have Answers: No suicidal/self-injuring ideation/behavior? Pt reported to be making Answers: No suicidal/self-injuring threats? Pt exhibits inability to Answers: No care for self/grave disability? Ideation/behavior is Answers: No chronic? Patient has a specific Answers: No plan? Pt has access to means to Answers: No execute the plan? Ideation involves Answers: No serious/lethal intent? Ideation has Answers: No delusional/hallucinatory content? History of Answers: No suicidal/self-injuring ideation, behavior, or threats? History of Answers: No aggressive/assaultive ideation, behavior, or threats? History of serious Answers: No physical harm to self/others while in treatment setting? TLC Evaluation - Suicide/Homicide Risk Suicide Risk Factors: Answers: < 20 or > 40 Years of Age Alcohol/Heavy Drug Use Anhedonia Impulsivity Inadequate Social Support Intoxication Lack of Presybeterian Support Lack of Social Support Lack/Loss of Employment Low Intelligence Single Unstable Living Situation Homicide/violence risk Answers: None factors: Current Suicidal Answers: No Ideation? Current Suicidal Ideation Answers: No in the Past 48 Hours? Suicide Internal Answers: Absence of Psychosis Protective Factors: Suicide External Answers: None Protective Factors: Ranking of patient's Answers: Low homicidal risk: TLC Evaluation - Wrap-up AXIS I Diagnosis (include DSM-V and ICD-10 codes), must also be entered in [employer], which is the source of truth. 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 Moreno concurred that pt does not appear to meet 27-65 criteria requiring psychiatric hospitalization as pt does not appear to be an imminent risk of harm to self/others/gravely disabled due to a mental illness condition. Dr. Moreno provided verbal order read back vacating hold at 0815 hrs. Evaluation End Date and 04/04/2018 08:45 AM Time (HH:MM): Date Signed: 04/04/2018 08:44 AM Electronically Signed By:Santos Abdalla
--- NOTE | 2018-04-04 08:47 | ASMTTCLDSP ---
TLC Discharge Disposition Disposition: Answers: Discharge If Answers: Yes DISCHARGED: Patient/family given suicide hotline info & SAMHSA brochure? Disposition Notes: Notes: Pt stated commitment or ability to keep self safe, denied thoughts of self harm or harm to others. Pt expressed a desire to f/u with homeless residential resources provided by grain operations manager. Pt was given local hotline information and SAMHSA brochure After an Attempt and encouraged to follow up with [facility]. Discharge Concerns/Recommendations: Notes: In consultation with [facility] ED physician, Dwayne Moreno MD, Dr. Moreno concurred that pt does not appear to meet 27-65 criteria requiring psychiatric hospitalization as pt does not appear to be an imminent risk of harm to self/others/gravely disabled due to a mental illness condition. Dr. Moreno provided verbal order read back vacating M1 hold at 0815 hrs. Was patient given the Answers: Not applicable Inpatient Behavioral Health Prohibited Belongings List while in the ED? Psychiatrist vacating M1 Dwayne Moreno MD Hold: Date and time M1 hold 04/04/2018 08:15 AM vacated (time format is hh:mm): Type of Hold: Answers: M1/72-hour Hold Hold initiated by: Answers: Police Date Signed: 04/04/2018 08:46 AM Electronically Signed By:Santos Abdalla
== END 2018-04-04 09:00 | disposition home or self-care (01) ==
DX: R45.851 Suicidal ideations (principal); F23 Brief psychotic disorder; F15.20 Other stimulant dependence, uncomplicated; Z59.0 Homelessness
CPT/HCPCS: 80305; G0480

== ENCOUNTER 2018-06-21 16:13 | Emergency (ER) | payer MEDICAID ==
[2018-06-21] MEDS ORDERED: ONDANSETRON 4 MG/2 ML VIAL IVP ONE (17:43)
[2018-06-21] MEDS ORDERED: NS 1,000 ML IV ONE ×2 (17:43→19:25)
[2018-06-21] MEDS ORDERED: ACETAMINOPHEN 500 MG TAB PO ONE (17:54)
--- NOTE | 2018-06-21 17:54 | EDPHY ---
General - History Smoking Status: Never smoked Time Seen by Provider: 06/21/18 17:41 Narrative: CLINICAL IMPRESSION: Nausea and vomiting ASSESSMENT/PLAN: 47-year-old homeless male presents to the emergency department with complaints of body aches, nausea and vomiting after being released from long term today. Patient came directly to the emergency department from long term. He became febrile shortly after arrival, was tachycardic, and tachypneic. No hypoxia or respiratory distress. Abdomen soft with no focal peritoneal findings. Influenza negative. Mild leukocytosis of 12, no significant electrolyte imbalance, renal insufficiency, transaminitis, pancreatitis, or evidence of acute surgical abdomen. Patient received 2 L IV fluid, IV antiemetics, and was able to sit up, ambulate and take food and juice without difficulty or vomiting. Patient will be discharged and recommend follow-up with [facility]. Zofran prescribed. Warning signs return to ED sooner outlined in discharge. DIFFERENTIAL DX: Abdominal pain differential ED PROCEDURES: See lab and/or imaging results below ED COURSE: 5:50 p.m.: Patient seen and assessed by myself. Tachycardic, tactile fever, appears dehydrated. Plan for IV, fluid bolus, labs, and antipyretics 7:20 P.M.: Patient reassessed, still appears very fatigued, vital signs stable aside from a now documented temperature of 39 degrees. Received Tylenol in ED, ibuprofen ordered, 2nd L of IV fluid ordered. 8:00 p.m.: Chest x-ray shows no acute cardiopulmonary disease. Patient receiving 2nd L of IV fluid, ibuprofen given, plan to give p.o. Challenge with probable discharge. 8:55 p.m.: Patient reassessed, feeling better, sleepy but awakens to verbal command, taking crackers and juice. No indication for admission. Patient will be removed from his scrubs provided at the long term. I asked if he would like to go to the warming intermediate and he said "no, I will figure it out". Primary care follow-up recommended. Zofran prescribed. Warning signs return to ED will be outlined and discharge. CHIEF COMPLAINT: Nausea vomiting and diarrhea HPI: 47-year-old homeless male presents to the emergency department after he was released from [facility] today. Patient reports since yesterday he has had nausea, vomiting, nonbloody diarrhea, and generalized abdominal discomfort. He reports associated chills and fever. He reports that "nothing was done for me in long term". He has not had alcohol since yesterday. He denies illicit drugs. He reports no chronic abdominal history. He denies cigarette smoking. He has not taken anything for his symptoms. He reports he has not been able to keep anything down since yesterday. PAST MEDICAL HISTORY: None reported See nurse/triage notes for additional history if applicable Pertinent Past Surgical History: None reported Family History: Noncontributory Social History: Homeless, alcohol use, reported history of illicit drug abuse REVIEW OF SYSTEMS: All other systems negative Constitutional: Positive for fever, chills, appetite change. Eyes: No discharge, vision change ENT: No sore throat, positive for congestion, ear pain. Cardiovascular: No chest pain, no palpitations. Respiratory: No cough, no shortness of breath. Gastrointestinal: Positive for abdominal pain, nausea, vomiting, diarrhea.] Genitourinary: No hematuria, dysuria, flank pain, pelvic pain Musculoskeletal: No back pain, joint swelling, joint pain, myalgias. Skin: No rashes, color change. Neurological: No headache, dizziness, positive for weakness. PHYSICAL EXAM: General Appearance: Alert, oriented, appropriate, cooperative, disheveled, wearing long term scrubs, NAD, well hydrated, non-toxic appearing, tachycardic, tachypneic, afebrile although appears warm tactilely. no hypoxia. HEENT: TMs are clear bilaterally no perforation or FB, no injection, no evidence of serous or mucopurulent otitis. Oropharynx clear is no erythema or exudates, no tonsillar hypertrophy or asymmetry. Poor dentition throughout, missing many teeth Eyes: PERRLA, no acute vision change, nystagmus, swelling, discharge, pain or photosensitivity. Conjunctiva pink, no pallor or injection Neck: Supple, nontender, no lymphadenopathy, no midline pain, FROM, no meningismus. Respiratory: There are no retractions, lungs are clear to auscultation. Cardiac: Regular rate and rhythm, no murmurs or gallops. Gastrointestinal: Abdomen is soft, generalized tenderness, bowel sounds normal , no masses/hernia, no rigidity, guarding or focal peritoneal findings. Neurological: [ Alert and oriented x 3, CN 2-12 grossly intact Skin: Warm, dry, no rashes, no nodules on palpation. Musculoskeletal: Extremities are symmetrical, full range of motion, no tenderness, deformity, swelling, or erythema. Psychiatric: Patient is oriented X 3, there is no agitation. MEDICAL DECISION MAKING: Patient was seen independently. Secondary supervising physician at time of evaluation was Dr. Desouza . Diagnosis: Acute nausea and vomiting. New, requires workup Summary: See Assessment and Plan for summary of ED visit Clinical lab tests: ordered / reviewed. Discussed patient with another provider: Dr Desouza Patient Progress: Improved, stable for discharge . (Felipe Sosa) Medical Decision Making: PHYSICIAN DOCUMENTATION: The patient was evaluated and managed by the Physician Brick Setter and myself. I have reviewed the chart and agree with the findings and plan of care as documented. In addition, I examined the patient myself at 1930. History confirmed as nausea vomiting diarrhea. Physical findings as follows: Mildly dehydrated mucous membranes, abdomen soft nontender. Specifically no McBurney' s point tenderness, no rebound or guarding. Plan for symptomatic treatment, then discharge. I am the secondary supervising physician. (Almas Desouza) - Diagnostics Imaging Results: Imaging Impressions Chest X-Ray 06/21/18 19:27 Impression: No acute cardiopulmonary process. - Objective Vital Signs: Initial Vital Signs Temperature (C) 36.6 C 06/21/18 16:19 Heart Rate 122 H 06/21/18 16:19 Respiratory Rate 24 H 06/21/18 16:19 Blood Pressure 121/80 H 06/21/18 16:19 O2 Sat (%) 98 06/21/18 16:19 O2 Delivery Mode Room Air Allergies/Adverse Reactions: DAIRY Allergy (Uncoded 06/21/18 16:19) Home Medications: Medication Instructions Recorded Ondansetron Odt [Zofran Odt] 4 mg PO Q4PRN PRN #7 tab 06/21/18 Laboratory Results: Laboratory Results 06/21/18 18:07 06/21/18 18:07 06/21/18 06/21/18 06/21/18 18:13 18:07 18:07 WBC 12.56 10^3/uL H 10^3/uL (3.80-9.50) RBC 4.51 10^6/uL 10^6/uL (4.40-6.38) Hgb 13.2 g/dL L g/dL (13.7-17.5) Hct 39.4 % L % (40.0-51.0) MCV 87.4 fL fL (81.5-99.8) MCH 29.3 pg pg (27.9-34.1) MCHC 33.5 g/dL g/dL (32.4-36.7) RDW 13.4 % % (11.5-15.2) Plt Count 321 10^3/uL 10^3/uL (150-400) MPV 8.4 fL L fL (8.7-11.7) Neut % (Auto) 94.2 % H % (39.3-74.2) Lymph % (Auto) 2.5 % L % (15.0-45.0) [place] % (Auto) 2.9 % L % (4.5-13.0) Eos % (Auto) 0.0 % L % (0.6-7.6) Baso % (Auto) 0.2 % L % (0.3-1.7) Nucleat RBC Rel Count 0.0 % % (0.0-0.2) Absolute Neuts (auto) 11.83 10^3/uL H 10^3/uL (1.70-6.50) Absolute Lymphs (auto) 0.31 10^3/uL L 10^3/uL (1.00-3.00) Absolute Monos (auto) 0.36 10^3/uL 10^3/uL (0.30-0.80) Absolute Eos (auto) 0.00 10^3/uL L 10^3/uL (0.03-0.40) Absolute Basos (auto) 0.03 10^3/uL 10^3/uL (0.02-0.10) Absolute Nucleated RBC 0.00 10^3/uL 10^3/uL (0-0.01) Immature Gran % 0.2 % % (0.0-1.1) Immature Gran # 0.03 10^3/uL 10^3/uL (0.00-0.10) RBC/WBC/PLT Morphology TNP Platelet Estimate TNP Sodium 134 mEq/L L mEq/L (135-145) Potassium 4.3 mEq/L mEq/L (3.5-5.2) Chloride 103 mEq/L mEq/L (97-110) Carbon Dioxide 23 mEq/l mEq/l (22-31) Anion Gap 8 mEq/L mEq/L (6-14) BUN 20 mg/dL mg/dL (7-23) Creatinine 0.6 mg/dL L mg/dL (0.7-1.3) Estimated GFR > 60 Glucose 114 mg/dL H mg/dL (70-100) Calcium 9.3 mg/dL mg/dL (8.5-10.4) Lipase 78 IU/L IU/L (23-300) Nasal Influenza A PCR NEGATIVE FOR FLU A (NEGATIVE) Nasal Influenza B PCR NEGATIVE FOR FLU B (NEGATIVE) Medications Given: Discontinued Medications Acetaminophen (Tylenol) 1,000 mg PO EDNOW ONE Stop: 06/21/18 17:55 Last Admin: 06/21/18 18:03 Dose: 1,000 mg Sodium Chloride (Ns) 1,000 mls @ 0 mls/hr IV EDNOW ONE; Wide Open PRN Reason: Protocol Stop: 06/21/18 17:44 Last Admin: 06/21/18 18:03 Dose: 1,000 mls Sodium Chloride (Ns) 1,000 mls @ 0 mls/hr IV EDNOW ONE; Wide Open PRN Reason: Protocol Stop: 06/21/18 19:26 Last Admin: 06/21/18 19:27 Dose: 1,000 mls Ibuprofen (Motrin) 600 mg PO EDNOW ONE Stop: 06/21/18 19:26 Last Admin: 06/21/18 19:27 Dose: 600 mg Ondansetron HCl (Zofran) 4 mg IVP EDNOW ONE Stop: 06/21/18 17:44 Last Admin: 06/21/18 18:04 Dose: 4 mg Departure - Departure Disposition: Home, Routine, Self-Care Clinical Impression: Nausea & vomiting Qualifiers: Vomiting type: unspecified Vomiting Intractability: non-intractable Qualified Code(s): R11.2 - Nausea with vomiting, unspecified Condition: Good Instructions: Acute Nausea and Vomiting (ED) Additional Instructions: DISCHARGE INSTRUCTIONS FROM YOUR DOCTOR Thank you for visiting our emergency department today. You were treated by a physician assistant superintendent for curriculum today and your case was reviewed with our ED Attending physician. Please keep in mind that discharge from the emergency department does not mean that there is nothing wrong - it simply means that we have not identified an emergency condition that requires further evaluation or treatment in the hospital. You should always plan to follow up with primary care for re- evaluation of your condition in the next 2-3 days. If you have been referred to a specialist, please call as soon as possible (today or tomorrow) to schedule your follow up appointment at the appropriate time. YOU ARE BEING DISCHARGED FROM THE EMERGENCY DEPARTMENT TONIGHT. WE SEE NO SIGN OF BACTERIAL INFECTION. YOU DO NOT HAVE THE FLU. PLEASE FOLLOW-UP WITH [facility]. STAY WELL-HYDRATED. RETURN TO THE ED FOR WORSENING ABDOMINAL PAIN, PERSISTENT VOMITING, PERSISTENT FEVERS, INABILITY TO STAY HYDRATED, OR ANY OTHER CONCERN. People present with illnesses and injuries in different ways, and it is always possible that we have missed something. You may always return for re-evaluation if symptoms worsen or if they are not improving or if you develop new/different symptoms. Again, thank you for choosing our emergency department. We hope that you feel better. Referrals: NONE *PRIMARY CARE P,. [Primary Care Provider] - As per Instructions [facility],. [Clinic] - As per Instructions Prescriptions: Ondansetron Odt [Zofran Odt] 4 mg PO Q4PRN PRN #7 tab PRN Reason: Nausea/Vomiting, Can'T Take Po
[2018-06-21 18:18] LABS: PLATELET COUNT 321 10^3/uL (150-400)
[2018-06-21] MEDS ORDERED: IBUPROFEN 600 MG TAB PO ONE ×2 (19:25→19:26)
[2018-06-21 20:30] VITALS: BP 108/54
== END 2018-06-21 21:33 | disposition home or self-care (01) ==
DX: R11.2 Nausea with vomiting, unspecified (principal); R19.7 Diarrhea, unspecified
CPT/HCPCS: 96374; J2405

== ENCOUNTER 2018-08-11 13:58 | Emergency (ER) | payer MEDICAID, OTHER ==
[2018-08-11 14:07] VITALS: BP 125/83
--- NOTE | 2018-08-11 14:10 | EDPHY ---
H & P Stated Complaint: meth+ Time Seen by Provider: 08/11/18 14:07 HPI/ROS: CHIEF COMPLAINT: Substance abuse HISTORY OF PRESENT ILLNESS: The patient is a 47-year-old man who was causing a disturbance and police were called. Originally he was combative with them and admitted to using methamphetamines recently. Since then however he has become cooperative. He has stable vital signs. He does not wish to be here does not think that he needs treatment. Police do not wish to take him to alf. He is not on a hold. Severity: Moderate Modifying factors: None REVIEW OF SYSTEMS: Constitutional: denies: chills, fever, recent illness, recent injury EENTM: denies: blurred vision, double vision, nose congestion Respiratory: denies: cough, shortness of breath Cardiac: denies: chest pain, irregular heart rate, lightheadedness, palpitations Gastrointestinal/Abdominal: denies: abdominal pain, diarrhea, nausea, vomiting, blood streaked stools Genitourinary: denies: dysuria, frequency, hematuria, pain Musculoskeletal: denies: joint pain, muscle pain Skin: denies: lesions, rash, jaundice, bruising Neurological: Poor compliance, denies: headache, numbness, paresthesia, tingling, dizziness, weakness Hematologic/Lymphatic: denies: blood clots, easy bleeding, easy bruising Immunologic/allergic: denies: HIV/AIDS, transplant 10 systems reviewed and negative except as noted EXAM: GENERAL: Disheveled and in no acute distress. Handcuffed/released HEAD: Atraumatic, normocephalic. EYES: Pupils equal round and reactive to light, extraocular movements intact, sclera anicteric, conjunctiva are normal. ENT: TMs normal, nares patent, oropharynx clear without exudates. Moist mucous membranes. NECK: Normal range of motion, supple without lymphadenopathy or JVD. LUNGS: Breath sounds clear to auscultation bilaterally and equal. No wheezes rales or rhonchi. HEART: Regular rate and rhythm without murmurs, rubs or gallops. ABDOMEN: Soft, nontender, normoactive bowel sounds. No guarding, no rebound. No masses appreciated. BACK: No CVA tenderness, no spinal tenderness, step-offs or deformities EXTREMITIES: Normal range of motion, no pitting or edema. No clubbing or cyanosis. NEUROLOGICAL: Cranial nerves II through XII grossly intact. Normal speech, normal gait. 5/5 strength, normal movement in all extremities, normal sensation , normal reflexes PSYCH: Minimally cooperative, does not wish to be here or be evaluated SKIN: Warm, dry, normal turgor, no visible rashes or lesions. Source: Patient Exam Limitations: No limitations - Personal History Current Tetanus/Diphtheria Vaccine: Unsure Current Tetanus Diphtheria and Acellular Pertussis (TDAP): Unsure - Medical/Surgical History Hx Asthma: No Hx Chronic Respiratory Disease: No Hx Diabetes: No Hx Cardiac Disease: No Hx Renal Disease: No Hx Cirrhosis: No Hx Alcoholism: Yes Hx HIV/AIDS: No Hx Splenectomy or Spleen Trauma: No Other PMH: ETOH, polysubstance abuse (meth,heroin), THC, homeless - Family History Significant Family History: No pertinent family hx - Social History Smoking Status: Never smoked Alcohol Use: Heavy Drug Use: Other Constitutional: Initial Vital Signs Temperature (C) 36.5 C 08/11/18 14:06 Heart Rate 97 08/11/18 14:06 Respiratory Rate 20 08/11/18 14:06 Blood Pressure 125/83 H 08/11/18 14:06 O2 Sat (%) 96 08/11/18 14:06 O2 Delivery Mode Room Air Allergies/Adverse Reactions: DAIRY Allergy (Uncoded 08/11/18 14:09) Home Medications: Medication Instructions Recorded Ondansetron Odt [Zofran Odt] 4 mg PO Q4PRN PRN #7 tab 06/21/18 Medical Decision Making ED Course/Re-evaluation: Patient is a homeless alcoholic polysubstance abuser who was causing a disturbance but is now more cooperative. He is stable vital signs and does not feel ill does not wish to be here. Police do not wish to take him to alf. They have not placed him on a hold. I will release him at this time. Differential Diagnosis: Partial list of the Differential diagnosis considered include but were not limited to; polysubstance abuse, head injury, schizophrenia and although unlikely based on the history and physical exam, I also considered decompensated psychosis. Departure - Departure Disposition: Home, Routine, Self-Care Clinical Impression: Polysubstance abuse Condition: Fair Instructions: Polysubstance Abuse (ED) Referrals: Patient,NotPresent [Unknown] - As per Instructions [facility],. [Clinic] - As per Instructions
== END 2018-08-11 14:18 | disposition home or self-care (01) ==
LOC: EDUNIT#
DX: F19.10 Other psychoactive substance abuse, uncomplicated (principal); Z59.0 Homelessness